=== PATIENT | male | born 1970 | race Caucasian/White ===

== ENCOUNTER 2019-08-20 15:50 | Emergency (ER) | payer SELFPAY ==
[~2019-08-20 15:50] MED LIST: 5% Dextrose in Water 250 ML Bag ONE; Calcium Chloride 10% 1 GM/10 ML Syringe ONE; EPINEPHrine 1:10,000 1 MG/10 ML Syringe ONE; Lidocaine 1% 10 ML MDV ONE; MAGNESIUM SULFATE ONE; Magnesium Sulfate/Water 2 GM/50 ML Premix Bag ONE; Midazolam 5 MG/ML 10 ML MDV ONE; Midazolam 5 MG/ML 5 ML MDV ONE; Naloxone 0.4 MG/ML SDV ONE; Naloxone 2 MG/2 ML Syringe ONE; Norepinephrine 4 MG/4 ML SDV ONE; Ondansetron 4 MG/2 ML SDV ONE; Propofol 200 MG/20 ML SDV ONE; Rocuronium 50 MG/5 ML Vial ONE; Sodium Bicarbonate 8.4% 50 MEQ/50 ML SDV ONE; Succinylcholine 200 MG/10 ML MDV ONE; WATER ONE
[2019-08-20] MEDS ORDERED: Sodium Bicarbonate 8.4% 50 MEQ/50 ML SDV ONE (16:02)
--- NOTE | 2019-08-20 16:19 | CR ---
Chest: Portable view of the chest was obtained. Comparison: No previous chest imaging. Heart size and mediastinum are normal. Lungs are clear with no acute parenchymal change. Bony structures are grossly intact. Impression: 1. Nothing acute is seen on portable chest x-ray. Diagnostic code #1 This report was dictated in MDT
[2019-08-20] MEDS ORDERED: Ondansetron 4 MG/2 ML SDV ONE ×2 (16:24→16:25)
[2019-08-20] MEDS ORDERED: Ondansetron 4 MG/2 ML SDV IVPUSH ONE (16:25)
--- NOTE | 2019-08-20 16:29 | EDM.PDOC ---
ED HPI GENERAL MEDICAL PROBLEM - General Chief Complaint: Drug or Alcohol Abuse Stated Complaint: [facility] Time Seen by Provider: 08/20/19 16:19 Source of Information: Reports: EMS, Family (daughter), RN Notes Reviewed - History of Present Illness INITIAL COMMENTS - FREE TEXT/NARRATIVE: 49 yr old male has been brought in by EMS status post cardiac arrest. He was found by a hotel clerk in his room a short time ago unresponsive, not breathing. EMS states the hotel clerk had helped him to his room "not long before the cardiac arrest with sx of feeling weak and dizzy" When the hotel clerk went back to check on him he was than found to be unresponsive, not breathing. Upon EMS arrival he was unresponsive, dusky, not breathing, in asystole. CPR started by EMS with unknown time of cardiac arrest. After about 3 minutes of CPR, narcan 2 mg IV and bag mask ventilation he came back wtih a sinus rythm with pulse started breathing on his own. Upon EMS arrival to ED a short time later he was still breathing on his own, tachypnic, tachycardic, unresponsive verbally and to pain. Last known well unknown. Shortly after patient arrival his daughter did arrive to ED. She states that her father drinks a large amount of hard alcohol daily, has been trying to stop drinking for a job, daughter does not know when he last ingested alcohol. Hx of what sounds like similar event at [facility] 1-2 yrs ago when he was admitted for a broken bone and "his heart stopped". No further hx available at this time. - Related Data Allergies Allergy/AdvReac Type Severity Reaction Status Date / Time No Known Allergies Allergy Verified 08/20/19 17:17 Home Meds: Home Meds . [No Known Home Meds] 08/20/19 [History] ED ROS GENERAL - Review of Systems Review Of Systems: Unable To Obtain (due to altered mental status) Reason Not Obtained: altered mental status, unresponsive verbally ED EXAM, CPR - Physical Exam Exam: See Below General Appearance: Other (unresponsive verbally or to pain, rapid deep spontaneous respirations) Eye Exam: Bilateral Eye: Other (pupils area equal relatively small, no visible reaction to light) Ears: Normal External Exam Nose: Normal Inspection Throat/Mouth: Normal Inspection Head: Atraumatic. No: Facial Swelling Neck: Other (no bruising or swelling, he does have JVD visible lying flat) Respiratory Chest: Respiratory Distress (tachypnea), Other (good breath sounds bilat). No: Rhonchi, Wheezing Cardiovascular: Tachycardia GI/Abdominal Exam: Soft, Non-Tender. No: Distended Extremities: Other (there is mild kelly). No: Pedal Edema, Increased Warmth, Redness Neurological: Unresponsive Skin Exam: Cyanosis (mild lower extrem on arrival, nail beds pink not cyanotic on arrival to ED). No: Diaphoretic EKG INTERPRETATION EKG Date: 08/20/19 Rhythm: Other (sinus tach) Course - Vital Signs Last Recorded V/S: Last Vital Signs Temp 97.0 F 08/20/19 17:30 Pulse 148 H 08/20/19 17:30 Resp 26 H 08/20/19 17:30 BP 117/88 08/20/19 17:30 Pulse Ox 100 08/20/19 17:30 - Orders/Labs/Meds Labs: Laboratory Tests 08/20/19 08/20/19 08/20/19 Range/Units 16:04 16:15 16:20 WBC 10.18 H (4.23-9.07) K/mm3 RBC 4.10 L (4.63-6.08) M/mm3 Hgb 14.4 (13.7-17.5) gm/dl Hct 39.7 L (40.1-51.0) % MCV 96.8 H (79.0-92.2) fl MCH 35.1 H (25.7-32.2) pg MCHC 36.3 H (32.2-35.5) g/dl RDW Std Deviation 45.1 H (35.1-43.9) fL Plt Count 230 (163-337) K/mm3 MPV 10.9 (9.4-12.3) fl Neut % (Auto) 74.4 H (34.0-67.9) % Lymph % (Auto) 17.1 L (21.8-53.1) % Berks % (Auto) 7.6 (5.3-12.2) % Eos % (Auto) 0.1 L (0.8-7.0) Baso % (Auto) 0.4 (0.1-1.2) % Neut # (Auto) 7.58 H (1.78-5.38) K/mm3 Lymph # (Auto) 1.74 (1.32-3.57) K/mm3 Berks # (Auto) 0.77 (0.30-0.82) K/mm3 Eos # (Auto) 0.01 L (0.04-0.54) K/mm3 Baso # (Auto) 0.04 (0.01-0.08) K/mm3 Manual Slide Review Abnormal smear PT (9.7-12.0) SECONDS INR APTT (22-31) SECONDS Puncture Site Lt radial ABG pH 7.01 L* (7.35-7.45) ABG pCO2 16.4 L* (35.0-45.0) mmHg ABG pO2 356.0 H* (80.0-100.0) mmHg ABG HCO3 3.9 L (22.0-26.0) meq/L ABG O2 Saturation 99.0 H (96.0-97.0) % ABG Base Excess -27.6 L (-2-2.0) Antonio Test A-a Gradient mmHg O2 Delivery Device Bvm Oxygen Flow Rate FiO2 100.00 (21.00-100.00) % Sodium (136-145) mEq/L Potassium (3.5-5.1) mEq/L Chloride (98-107) mEq/L Carbon Dioxide (21-32) mEq/L Anion Gap (5-15) BUN (7-18) mg/dL Creatinine (0.7-1.3) mg/dL Est Cr Clr Drug Dosing Estimated GFR (MDRD) (>60) mL/min BUN/Creatinine Ratio (14-18) Glucose (74-106) mg/dL Lactic Acid (0.4-2.0) mmol/L Calcium (8.5-10.1) mg/dL Magnesium (1.8-2.4) mg/dl Total Bilirubin (0.2-1.0) mg/dL AST (15-37) U/L ALT (16-63) U/L Alkaline Phosphatase (46-116) U/L Troponin I (0.00-0.056) ng/mL Total Protein (6.4-8.2) g/dl Albumin (3.4-5.0) g/dl Globulin gm/dL Albumin/Globulin Ratio (1-2) Urine Opiates Screen Negative (WRBCKH=228) Ur Buprenorphine Scrn Negative (CUTOFF=10) Ur Oxycodone Screen Negative (GLS2WW=092) Urine Methadone Screen Negative (BUR4PO=009) Ur Propoxyphene Screen Negative (PWQGSK=875) Ur Barbiturates Screen Negative (KDSFMR=881) Ur Tricyclics Screen Negative (MPZILR=522) Ur Phencyclidine Scrn Negative (CUTOFF=25) Ur Amphetamine Screen Negative (XEGETP=587) U Methamphetamines Scrn Negative (DFMNNG=812) U Benzodiazepines Scrn Negative (KFZHID=311) U Cocaine Metab Screen Negative (LLUYIC=593) U Marijuana (THC) Screen Negative (CUTOFF=50) Ethyl Alcohol (0.00) gm% SARS Virus RNA (PCR) (NEGATIVE) 08/20/19 08/20/19 08/20/19 Range/Units 16:20 16:20 16:20 WBC (4.23-9.07) K/mm3 RBC (4.63-6.08) M/mm3 Hgb (13.7-17.5) gm/dl Hct (40.1-51.0) % MCV (79.0-92.2) fl MCH (25.7-32.2) pg MCHC (32.2-35.5) g/dl RDW Std Deviation (35.1-43.9) fL Plt Count (163-337) K/mm3 MPV (9.4-12.3) fl Neut % (Auto) (34.0-67.9) % Lymph % (Auto) (21.8-53.1) % Berks % (Auto) (5.3-12.2) % Eos % (Auto) (0.8-7.0) Baso % (Auto) (0.1-1.2) % Neut # (Auto) (1.78-5.38) K/mm3 Lymph # (Auto) (1.32-3.57) K/mm3 Berks # (Auto) (0.30-0.82) K/mm3 Eos # (Auto) (0.04-0.54) K/mm3 Baso # (Auto) (0.01-0.08) K/mm3 Manual Slide Review PT (9.7-12.0) SECONDS INR APTT (22-31) SECONDS Puncture Site ABG pH (7.35-7.45) ABG pCO2 (35.0-45.0) mmHg ABG pO2 (80.0-100.0) mmHg ABG HCO3 (22.0-26.0) meq/L ABG O2 Saturation (96.0-97.0) % ABG Base Excess (-2-2.0) Antonio Test A-a Gradient mmHg O2 Delivery Device Oxygen Flow Rate FiO2 (21.00-100.00) % Sodium 122 L (136-145) mEq/L Potassium 4.9 (3.5-5.1) mEq/L Chloride 88 L (98-107) mEq/L Carbon Dioxide 9 L (21-32) mEq/L Anion Gap 29.9 H (5-15) BUN 18 (7-18) mg/dL Creatinine 1.8 H (0.7-1.3) mg/dL Est Cr Clr Drug Dosing TNP Estimated GFR (MDRD) 40 (>60) mL/min BUN/Creatinine Ratio 10.0 L (14-18) Glucose 123 H (74-106) mg/dL Lactic Acid (0.4-2.0) mmol/L Calcium 8.8 (8.5-10.1) mg/dL Magnesium 2.2 (1.8-2.4) mg/dl Total Bilirubin 1.5 H (0.2-1.0) mg/dL AST 143 H (15-37) U/L ALT 85 H (16-63) U/L Alkaline Phosphatase 69 (46-116) U/L Troponin I 0.030 (0.00-0.056) ng/mL Total Protein 6.0 L (6.4-8.2) g/dl Albumin 3.0 L (3.4-5.0) g/dl Globulin 3.0 gm/dL Albumin/Globulin Ratio 1.0 (1-2) Urine Opiates Screen (WOCWTM=177) Ur Buprenorphine Scrn (CUTOFF=10) Ur Oxycodone Screen (FQT1TE=722) Urine Methadone Screen (HVY3ET=344) Ur Propoxyphene Screen (AWIDPV=098) Ur Barbiturates Screen (JYJGSL=811) Ur Tricyclics Screen (UDEBII=802) Ur Phencyclidine Scrn (CUTOFF=25) Ur Amphetamine Screen (MGMGOX=442) U Methamphetamines Scrn (IUFIGN=622) U Benzodiazepines Scrn (SDUOXY=545) U Cocaine Metab Screen (QTZEYN=091) U Marijuana (THC) Screen (CUTOFF=50) Ethyl Alcohol 0.00 (0.00) gm% SARS Virus RNA (PCR) (NEGATIVE) 08/20/19 08/20/19 08/20/19 Range/Units 16:54 17:05 17:09 WBC (4.23-9.07) K/mm3 RBC (4.63-6.08) M/mm3 Hgb (13.7-17.5) gm/dl Hct (40.1-51.0) % MCV (79.0-92.2) fl MCH (25.7-32.2) pg MCHC (32.2-35.5) g/dl RDW Std Deviation (35.1-43.9) fL Plt Count (163-337) K/mm3 MPV (9.4-12.3) fl Neut % (Auto) (34.0-67.9) % Lymph % (Auto) (21.8-53.1) % Berks % (Auto) (5.3-12.2) % Eos % (Auto) (0.8-7.0) Baso % (Auto) (0.1-1.2) % Neut # (Auto) (1.78-5.38) K/mm3 Lymph # (Auto) (1.32-3.57) K/mm3 Berks # (Auto) (0.30-0.82) K/mm3 Eos # (Auto) (0.04-0.54) K/mm3 Baso # (Auto) (0.01-0.08) K/mm3 Manual Slide Review PT (9.7-12.0) SECONDS INR APTT (22-31) SECONDS Puncture Site Ll ABG pH 7.30 L (7.35-7.45) ABG pCO2 10.2 L* (35.0-45.0) mmHg ABG pO2 126.0 H (80.0-100.0) mmHg ABG HCO3 4.8 L (22.0-26.0) meq/L ABG O2 Saturation 98.8 H (96.0-97.0) % ABG Base Excess -20.6 L (-2-2.0) Antonio Test Positive A-a Gradient 576 mmHg O2 Delivery Device Mask Oxygen Flow Rate 15.0 FiO2 100.00 (21.00-100.00) % Sodium (136-145) mEq/L Potassium (3.5-5.1) mEq/L Chloride (98-107) mEq/L Carbon Dioxide (21-32) mEq/L Anion Gap (5-15) BUN (7-18) mg/dL Creatinine (0.7-1.3) mg/dL Est Cr Clr Drug Dosing Estimated GFR (MDRD) (>60) mL/min BUN/Creatinine Ratio (14-18) Glucose (74-106) mg/dL Lactic Acid 11.4 H* (0.4-2.0) mmol/L Calcium (8.5-10.1) mg/dL Magnesium (1.8-2.4) mg/dl Total Bilirubin (0.2-1.0) mg/dL AST (15-37) U/L ALT (16-63) U/L Alkaline Phosphatase (46-116) U/L Troponin I (0.00-0.056) ng/mL Total Protein (6.4-8.2) g/dl Albumin (3.4-5.0) g/dl Globulin gm/dL Albumin/Globulin Ratio (1-2) Urine Opiates Screen (PIJLNZ=232) Ur Buprenorphine Scrn (CUTOFF=10) Ur Oxycodone Screen (QJP1AH=881) Urine Methadone Screen (ETW9OC=975) Ur Propoxyphene Screen (ZCJBUH=008) Ur Barbiturates Screen (HSRVNE=526) Ur Tricyclics Screen (KXAKTR=415) Ur Phencyclidine Scrn (CUTOFF=25) Ur Amphetamine Screen (CBVDGN=080) U Methamphetamines Scrn (CECMKI=718) U Benzodiazepines Scrn (FWXNVT=502) U Cocaine Metab Screen (EIKXMB=128) U Marijuana (THC) Screen (CUTOFF=50) Ethyl Alcohol (0.00) gm% SARS Virus RNA (PCR) Negative (NEGATIVE) 08/20/19 Range/Units 19:28 WBC (4.23-9.07) K/mm3 RBC (4.63-6.08) M/mm3 Hgb (13.7-17.5) gm/dl Hct (40.1-51.0) % MCV (79.0-92.2) fl MCH (25.7-32.2) pg MCHC (32.2-35.5) g/dl RDW Std Deviation (35.1-43.9) fL Plt Count (163-337) K/mm3 MPV (9.4-12.3) fl Neut % (Auto) (34.0-67.9) % Lymph % (Auto) (21.8-53.1) % Berks % (Auto) (5.3-12.2) % Eos % (Auto) (0.8-7.0) Baso % (Auto) (0.1-1.2) % Neut # (Auto) (1.78-5.38) K/mm3 Lymph # (Auto) (1.32-3.57) K/mm3 Berks # (Auto) (0.30-0.82) K/mm3 Eos # (Auto) (0.04-0.54) K/mm3 Baso # (Auto) (0.01-0.08) K/mm3 Manual Slide Review PT 16.0 H (9.7-12.0) SECONDS INR 1.50 APTT 33 H (22-31) SECONDS Puncture Site ABG pH (7.35-7.45) ABG pCO2 (35.0-45.0) mmHg ABG pO2 (80.0-100.0) mmHg ABG HCO3 (22.0-26.0) meq/L ABG O2 Saturation (96.0-97.0) % ABG Base Excess (-2-2.0) Antonio Test A-a Gradient mmHg O2 Delivery Device Oxygen Flow Rate FiO2 (21.00-100.00) % Sodium (136-145) mEq/L Potassium (3.5-5.1) mEq/L Chloride (98-107) mEq/L Carbon Dioxide (21-32) mEq/L Anion Gap (5-15) BUN (7-18) mg/dL Creatinine (0.7-1.3) mg/dL Est Cr Clr Drug Dosing Estimated GFR (MDRD) (>60) mL/min BUN/Creatinine Ratio (14-18) Glucose (74-106) mg/dL Lactic Acid (0.4-2.0) mmol/L Calcium (8.5-10.1) mg/dL Magnesium (1.8-2.4) mg/dl Total Bilirubin (0.2-1.0) mg/dL AST (15-37) U/L ALT (16-63) U/L Alkaline Phosphatase (46-116) U/L Troponin I (0.00-0.056) ng/mL Total Protein (6.4-8.2) g/dl Albumin (3.4-5.0) g/dl Globulin gm/dL Albumin/Globulin Ratio (1-2) Urine Opiates Screen (OPNCDA=757) Ur Buprenorphine Scrn (CUTOFF=10) Ur Oxycodone Screen (ZJC3OK=742) Urine Methadone Screen (YEZ7CV=835) Ur Propoxyphene Screen (DHUOPT=876) Ur Barbiturates Screen (JZTUNC=700) Ur Tricyclics Screen (BVBRMM=207) Ur Phencyclidine Scrn (CUTOFF=25) Ur Amphetamine Screen (YAWFMZ=055) U Methamphetamines Scrn (HHOOSP=873) U Benzodiazepines Scrn (LKEQFV=944) U Cocaine Metab Screen (NXUNFB=507) U Marijuana (THC) Screen (CUTOFF=50) Ethyl Alcohol (0.00) gm% SARS Virus RNA (PCR) (NEGATIVE) Meds: Medications Discontinued Medications Generic Name Dose Route Start Last Admin Trade Name Freq PRN Reason Stop Dose Admin Calcium Chloride 1 gm 08/20/19 15:50 Calcium Chloride 10% .ROUTE 08/20/19 15:51 .STK-MED ONE Dextrose/Water 250 ml 08/20/19 15:50 Dextrose 5% In Water .ROUTE 08/20/19 15:51 .STK-MED ONE Epinephrine HCl 1 mg 08/20/19 15:50 Epinephrine 1:10,000 .ROUTE 08/20/19 15:51 .STK-MED ONE Propofol Confirm 08/20/19 17:40 Diprivan 100 Ml Administered 08/20/19 17:41 Dose 100 mls @ as directed .ROUTE .STK-MED ONE Sodium Chloride Confirm 08/20/19 17:42 Normal Saline Administered 08/20/19 17:43 Dose 50 mls @ as directed .ROUTE .STK-MED ONE Dextrose/Water Confirm 08/20/19 18:19 Dextrose 5% In Water Administered 08/20/19 18:20 Dose 250 mls @ as directed .ROUTE .STK-MED ONE Sodium Chloride Confirm 08/20/19 18:38 Normal Saline Administered 08/20/19 18:39 Dose 1,000 mls @ as directed .ROUTE .STK-MED ONE Sodium Chloride Confirm 08/20/19 19:34 Normal Saline Administered 08/20/19 19:35 Dose 50 mls @ as directed .ROUTE .STK-MED ONE Midazolam HCl 50 mg/ Sodium 50 mls @ 1.4 mls/hr 08/20/19 19:45 Chloride IV TITRATE NIGEL Protocol 0.02 MG/KG/HR Lidocaine HCl 10 ml 08/20/19 15:50 Xylocaine 1% .ROUTE 08/20/19 15:51 .STK-MED ONE Magnesium Sulfate 4 gm 08/20/19 15:50 Magnesium Sulfate In Water Premix .ROUTE 08/20/19 15:51 .STK-MED ONE Magnesium Sulfate 2 gm 08/20/19 00:00 Magnesium Sulfate In Water Premix .ROUTE 08/20/19 00:01 .STK-MED ONE Midazolam HCl Confirm 08/20/19 17:40 Versed 5 Mg/Ml Administered 08/20/19 17:41 Dose 50 mg .ROUTE .STK-MED ONE Midazolam HCl Confirm 08/20/19 19:34 Versed 5 Mg/Ml Administered 08/20/19 19:35 Dose 50 mg .ROUTE .STK-MED ONE Midazolam HCl 100 mg 08/20/19 15:50 Versed 5 Mg/Ml .ROUTE 08/20/19 15:51 .STK-MED ONE Midazolam HCl 25 mg 08/20/19 15:50 Versed 5 Mg/Ml .ROUTE 08/20/19 15:51 .STK-MED ONE Naloxone HCl 0.8 mg 08/20/19 15:50 Narcan .ROUTE 08/20/19 15:51 .STK-MED ONE Naloxone HCl 2 mg 08/20/19 15:50 Narcan .ROUTE 08/20/19 15:51 .STK-MED ONE Naloxone HCl Confirm 08/20/19 15:49 Narcan Administered 08/20/19 15:50 Dose 0.8 mg .ROUTE .STK-MED ONE Norepinephrine Bitartrate Confirm 08/20/19 18:17 Levophed Administered 08/20/19 18:18 Dose 4 mg .ROUTE .STK-MED ONE Norepinephrine Bitartrate 4 mg 08/20/19 15:50 Levophed .ROUTE 08/20/19 15:51 .STK-MED ONE Ondansetron HCl 4 mg 08/20/19 16:25 Zofran IVPUSH 08/20/19 16:26 ONETIME ONE Ondansetron HCl Confirm 08/20/19 16:24 Zofran Administered 08/20/19 16:25 Dose 4 mg .ROUTE .STK-MED ONE Ondansetron HCl Confirm 08/20/19 16:25 Zofran Administered 08/20/19 16:26 Dose 4 mg .ROUTE .STK-MED ONE Ondansetron HCl 4 mg 08/20/19 15:50 Zofran .ROUTE 08/20/19 15:51 .STK-MED ONE Propofol 200 mg 08/20/19 15:50 Diprivan 20 Ml .ROUTE 08/20/19 15:51 .STK-MED ONE Rocuronium Soledad 50 mg 08/20/19 15:50 Zemuron .ROUTE 08/20/19 15:51 .STK-MED ONE Sodium Bicarbonate Confirm 08/20/19 16:02 Sodium Bicarbonate 8.4% Administered 08/20/19 16:03 Dose 50 meq .ROUTE .STK-MED ONE Sodium Bicarbonate 50 meq 08/20/19 15:50 Sodium Bicarbonate 8.4% .ROUTE 08/20/19 15:51 .STK-MED ONE Sodium Bicarbonate 50 meq 08/20/19 15:50 Sodium Bicarbonate 8.4% .ROUTE 08/20/19 15:51 .STK-MED ONE Sodium Chloride 4,000 ml 08/20/19 15:50 Normal Saline .ROUTE 08/20/19 15:51 .STK-MED ONE Sodium Chloride 100 ml 08/20/19 15:50 Normal Saline .ROUTE 08/20/19 15:51 .STK-MED ONE Succinylcholine Chloride 200 mg 08/20/19 15:50 Quelicin .ROUTE 08/20/19 15:51 .STK-MED ONE - Re-Assessments/Exams Free Text/Narrative Re-Assessment/Exam: 08/20/19 17:45 As noted, strong hx of alcohol abuse and dependency per daughter. Our ICU was on diversion at time of patient arrival. I was preparing to call [facility] for transfer about 60 minutes after patient arrival. Initial ABG's as documented. Repeat gases were improved from ph 7.01 shortly after arrival to 7.30 drawn about 55 minutes later. Initial P02 15 L NRB 356, follow up P02 126 room air. Most labs still pending. CXR no acute abnormality. EKG sinus tach, no acute diagnostic changes. He arrived with good blood pressure and continued to maintain good BP, cap refill to this time. I did double check with Dr Wiley, our Hospitalist prior to making transfer and she stated they would move a patient out of ICU to make provision for his admission to our ICU. 18:24. Pt was give versed by one of our nurses prior to planned intubation by Dr Wiley to protect airway with continued altered mental status, starting to move legs slightly but still no sign of awakening. shortly after versed IV patient stopped breathing, went into asystole. Code Blue called, CPR started imediately. After 6-7 minutes CPR, 1 mg epi IV returned to sinus rythmm,120's. Head CT prior to this no acute abnormality. Etoh 0.0, sodium 122. Anion gap 29.9. K+ good, Mag pending. 08/20/19 19:12. Patient had another [address] Wiley has decided he should be transferred to a higher level of care. Etiology of cardiac arrest, underlying trigger unknown, consider seizure, subsequent arrest, consider toxic alcohol ingestion, consider cardiac myopathy with other possibilities. I called [facility], they have declined accepting patient in transfer due to staffing issues. Dr Wiley has taken over transfer arrangements, she has called [facility], they have accepted patient for transfer, Dr Galindo, critical care accepting Physician. Will go by [facility]. Departure - Departure Time of Disposition: 19:25 Disposition: DC/Tfer to Acute Hospital 02 Preliminary Cause of *Q: Cardiac Arrest Clinical Impression: Hyponatremia Alcohol withdrawal syndrome Qualifiers: Complication of substance-induced condition: uncomplicated Qualified Code(s): F10.230 - Alcohol dependence with withdrawal, uncomplicated - Discharge Information Referrals: PCP,None [Primary Care Provider] - Sepsis Event Note - Focused Exam Date Exam was Performed: 08/24/19 Time Exam was Performed: 07:20
[2019-08-20] MEDS ORDERED: propofoL 100 ML ONE (17:40)
[2019-08-20] MEDS ORDERED: Midazolam 5 MG/ML 10 ML MDV ONE ×2 (17:40→19:34)
[2019-08-20] MEDS ORDERED: Sodium Chloride 0.9% 50 ML ONE ×2 (17:42→19:34)
--- NOTE | 2019-08-20 17:52 | CT ---
Head CT Technique: Multiple axial sections through the brain were obtained. Study was repeated due to motion artifact. Limitations: Mild motion artifact persists on the 2nd imaging. Comparison: No prior intracranial imaging is available. Findings: Ventricles along with basal cisterns and sulci over the convexities are mildly prominent. No abnormal parenchymal densities are seen. No evidence of intracranial hemorrhage. No midline shift or mass-effect is seen. Bone window settings were reviewed. Mild mucosal thickening is seen within a left mastoid sinus. Mild mucosal thickening is noted within the left maxillary sinus. No fluid levels are appreciated to indicate acute sinus disease. No acute calvarial finding is seen. Impression: 1. Mild generalized atrophy. 2. Sinus findings believed to be chronic. 3. No acute intracranial abnormality is appreciated. Diagnostic code #2 This report was dictated in MDT I agree with preliminary report from yazmin, finalized on 08/20/19, 6:24 PM Central Daylight Time
--- NOTE | 2019-08-20 18:11 | PCM.SN.2 ---
- Free Text/Narrative Note: Anesthesia Note: Start: 163 Stop: 1804 Anesthesia requested for patient unresponsive in need of intubation. COVID screen (awaiting results)... Code Blue/asystole rhythm noted, CPR started, Dr. Wiley present and willing to intubate due to potential Covid exposure. Anesthesia available for assistance outside of room. Anesthesia released from duty via Dr. Wiley.
[2019-08-20] MEDS ORDERED: Norepinephrine 4 MG/4 ML SDV ONE (18:17)
[2019-08-20] MEDS ORDERED: Dextrose 5% in Water 250 ML ONE (18:19)
[2019-08-20] MEDS ORDERED: Sodium Chloride 0.9% 1,000 ML ONE (18:38)
[2019-08-20] MEDS ORDERED: Midazolam 50 MG in Sodium Chloride 0.9% 40 ML IV SCH (19:45)
--- NOTE | 2019-08-20 22:28 | PCM.PRNOTE ---
- Free Text/Narrative Note: Endotracheal Intubation Date: 08/20/19 Time: 17:50 Indication: Impending respiratory failure Attending: Tia Wiley MD A time-out was completed verifying correct patient, procedure, site, positioning , and special equipment if applicable. The patient was placed in a flat position. Sedation was performed with Versed 2mg The patient was easily ventilated using an Ambu bag. The MAC 4 BLADE was used and inserted into the oropharynx at which time there was a Grade 1 view of the vocal cords. A 8-yemeni endotracheal tube was inserted and visualized going through the vocal cords. The stylette was removed. Colorimetric change was visualized on the CO2 meter. Breath sounds were heard in both lung riggins equally. The endotracheal tube was placed at 25cm, measured at the teeth. A chest x-ray was ordered to assess for pneumothorax and verify endotrachealtube placement. Estimated Blood Loss: none The patient tolerated the procedure well and there were no complications.
--- NOTE | 2019-08-20 22:29 | PCM.PRNOTE ---
- Free Text/Narrative Note: Central Venous Catheter Placement Date: 08/20/19 Time: 18:53 Indication: Need for caustic medication use for blood pressure control Attending: Tia Wiley MD A time-out was completed verifying correct patient, procedure, site, positioning , and special equipment if applicable. The patient was placed in a dependent position appropriate for central line placement based on the vein to be cannulated. The patients right neck was prepped and draped in sterile fashion. 1% Lidocaine was used to anesthetize the surrounding skin area. A triple lumen 7-Bulgarian Cordis catheter was introduced into the the internal jugular using the Seldinger technique and under ultrasound guidance. The catheter was threaded smoothly over the guide wire and appropriate blood return was obtained. Each lumen of the catheter was evacuated of air and flushed with sterile saline. The catheter was then sutured in place to the skin and a sterile dressing applied. Perfusion to the extremity distal to the point of catheter insertion was checked and found to be adequate. Estimated Blood Loss: 20mL The patient tolerated the procedure well and there were no complications.
--- NOTE | 2019-08-21 09:20 | CR ---
Chest: Portable supine view of the chest was obtained. Comparison: Prior chest x-ray of performed earlier on the same day (3:45 PM). Endotracheal tube is now seen. Tip lies at the origin of the right mainstem bronchus and should be withdrawn by about 4-5 cm. Cardiac silhouette mediastinum are normal. Lungs are clear with no acute parenchymal change. Bony structures are grossly intact. Impression: 1. Tip of endotracheal tube at the right mainstem bronchus. Tube should be withdrawn by about 4-5 cm. 2. Nothing acute is otherwise seen on portable supine chest x-ray. Diagnostic code #3 This report was dictated in MDT MTDD
--- NOTE | 2019-08-21 09:21 | CT ---
Head CT Technique: Multiple axial sections through the brain were obtained. Intravenous contrast was not utilized. Comparison: Previous head CT study performed earlier on the same day (4:55 PM). Findings: Ventricles along with basal cisterns and sulci over the convexities are mildly prominent. No evidence of intracranial hemorrhage. No abnormal parenchymal densities are seen. No midline shift or mass-effect is seen. Bone window settings were reviewed. Stable sinus findings are seen. No acute calvarial finding is noted. Impression: 1. Findings as described above. 2. No acute intracranial abnormality is appreciated. No significant change from previous head CT study is seen. Diagnostic code #2 This report was dictated in [facility]TD[facility]
--- NOTE | 2019-08-21 09:22 | CR ---
Chest: Portable supine view of the chest was obtained. Comparison: Prior chest x-ray performed earlier on the same day (5:56 PM). Endotracheal tube is seen. Tip is located more distal within the right mainstem bronchus from prior study. Right-sided jugular line is noted. Tip lies within the very distal superior vena cava near the brachiocephalic junction. Lungs are clear with no acute parenchymal change. No definite pneumothorax is seen. Impression: 1. Tip of endotracheal tube is further down into the right mainstem bronchus than on prior chest x-ray. This endotracheal tube should be repositioned. 2. Right jugular line is now seen with tip lying within the superior vena cava near the right brachiocephalic junction. 3. Nothing acute is otherwise seen within the chest. Diagnostic code #5 This report was dictated in [facility]T [facility]TD[facility]
--- NOTE | 2019-08-21 11:50 | PCM.SN.2 ---
- Free Text/Narrative Note: Hospitalist Note for CPR Was called into ED by Dr. Perez to evaluate patient Patient with a history of being found down and EMS performing CPR for 3 minutes before spontaneous circulation was achieved. Patient was brought to the ED with tachypnea and poor responsiveness, this did not change while in ED. Upon my evaluation patient was significantly tachypneic and tachycardic for which the decision was made to intubate Prior to intubation patient actually stopped breathing and his heart stopped. 1. CPR was started 2. Patient was intubated 3. CPR was performed for 7 minutes and spontaneous circulation was obtained. 4. Central line was placed 5. Patient once again became hypoxemic and bradycardic until CPR needed to be restarted 6. Decision was made to transfer patient to higher level of care Please refer to nursing notes for specifics on patient's care. Total critical care time: 180 minutes
== END 2019-08-20 21:20 ==
LOC: JD.ED 15:50
DX: F10.230 Alcohol dependence with withdrawal, uncomplicated (principal); E87.1 Hypo-osmolality and hyponatremia; Z53.21 Procedure and treatment not carried out due to patient leaving prior to being seen by health care provider
CPT/HCPCS: 31500; 36415; 36556; 36600; 43752; 51702; 70450; 71045; 80053; 80306; 80307; 82803; 83605; 83735; 84484; 85025; 85610; 85730; 87635; 92950; 93005; 96361; 96365; 96366; 96367; 96368; 96375; 99291; 99292; J0171; J0330; J2001; J2250; J2310; J2405; J2704; J3475; J7030; J7050; J7060; 93010; 99284; U0002